=== PATIENT | female | born 1950 | race Caucasian/White ===

== ENCOUNTER 2018-07-21 10:11 | Emergency (ER) | payer OTHER ==
[~2018-07-21] VITALS: Ht 152.4 cm; Wt 63.5 kg
[~2018-07-21 10:11] MED LIST: AVALIDE 300/12.1 TAB PO; BENAZEPRIL HCL40 MG; CATAPRES0.3 M1; PLAVIX75 MG; SINGULAIR10 MG
[2018-07-21] MEDS ORDERED: TOPROL XL100 M1 (10:27)
[2018-07-21] MEDS ORDERED: SKELAXIN800 MG PO (15:02)
[2018-07-21] MEDS ORDERED: CELECOXIB200 MG PO (15:02)
[2018-07-21] MEDS ORDERED: ULTRACET PO (15:02)
== END 2018-07-21 15:58 | disposition home or self-care (01) ==
LOC: ER 10:11
DX: M62.838 Other muscle spasm (principal)

== ENCOUNTER 2018-09-19 12:06 | Emergency (ER) | payer OTHER ==
[~2018-09-19] VITALS: Ht 147.3 cm; Wt 59.0 kg
[~2018-09-19 12:06] MED LIST changes: +CELECOXIB200 MG PO; +SKELAXIN800 MG PO; +TOPROL XL100 M1; +ULTRACET PO
== END 2018-09-19 16:59 | disposition home or self-care (01) ==
LOC: ER 12:06
DX: R42 Dizziness and giddiness (principal)